=== PATIENT | female | born 1980 | race Caucasian/White ===

== ENCOUNTER 2022-03-15 11:01 | Emergency (ER) | payer MEDICARE, MEDICAID, SELFPAY ==
[2022-03-15 11:09] VITALS: BP 145/90; PULSE 86; RESP 18; TEMP 36.6; O2SAT 98; BMI 25.7
--- NOTE | 2022-03-15 11:29 | ED.GENADULT ---
HPI - General Adult General Chief complaint: Overdose Stated complaint: overdose Time Seen by Provider: 03/15/22 11:13 Source: patient Mode of arrival: ambulatory Limitations: no limitations History of Present Illness HPI narrative: 41-year-old female history of opiate abuse presents to ED for accidental overdose. Patient states she accidentally overdosed of 1 bag of heroin. Patient states she has been clean but was suffering from sciatica pain so she took some heroin. Patient has no intentions to hurt herself. Patient does not want detox. Patient received Narcan in the field. Related Data Allergies Allergy/AdvReac Type Severity Reaction Status Date / Time ibuprofen [IBUPROFEN] Allergy Unknown veins Verified 03/15/22 11:15 twitching/hurting LOBSTER Allergy Severe ANAPHYLAXIS Uncoded 07/18/20 14:38 motrin Allergy Unknown Unknown Uncoded 03/15/22 11:15 Review of Systems Review of Systems: Accidental overdose. Yes all other systems are reviewed and are negative [facility] Past Medical History Medical History (Updated 03/15/22 @ 16:46 by CYNTHIA Valle) Depression Sciatic leg pain Substance abuse Social History Social History Advance Directives: No Advance Directives Information Provided: No Physical Exam ED Vital Signs: Vital Signs - 24 hr 03/15/22 11:09 Temperature 97.8 F Pulse Rate 86 Respiratory Rate 18 Blood Pressure 145/90 H Pulse Oximetry 98 BMI result Body Mass Index 25.7 Const General: cooperative, healthy appearing, comfortable, no acute distress, well developed, alert, awake and Physically active Orientation/consciousness: oriented to time and patient oriented x3 HENMT Head: Yes normal to inspection, Yes No palpable skull fracture present, Yes normocephalic, Yes atraumatic and No abrasion Eyes General: appearance normal, both eyes and all related structures Neck Neck: Yes normal visual inspection, Yes full ROM, Yes no lymphadenopathy, Yes no meningeal signs, Yes trachea midline, Yes supple, No anterior neck swelling and No tender Chest Chest palpation & inspection: normal inspection of the chest and normal palpation of entire chest wall Resp Effort & Inspection: normal respiratory effort and able to speak in complete sentences Cardio Jugular venous distension: no JVD Heart sounds: S1 normal heart sound present and S2 normal heart sound present GI Inspection: Yes normal to inspection and No abdominal wall ecchymosis Palpation (GI): Soft to palpation, not firm, nontender, no guarding and not rigid General: No CVA tenderness and Yes no CVA tenderness Back/Spine/Pelvis Back: no CVA tenderness, No CVA tenderness and No back tenderness Skin General skin exam: no rashes or lesions noted and elasticity normal Neuro General: oriented to time, patient oriented x3, no meningeal signs and CN's II-XI intact bilaterally Cranial nerves: Yes CN's II-XII intact bilaterally Extrem General: Yes normal to inspection and Yes full ROM Psych Appearance: grossly normal, well kempt and not disheveled Course Course Course Narrative: Patient alert oriented x3. Care team consult DESI placed Reevaluation(s) Reevaluation #1: Patient alert oriented x3. Patient walked out during ED visit. Patient had normal vital signs. Patient was informed we would watch her her for at least an hour to make sure she does not go in respiratory distress. patient eloped from the ER without staff knowiing.. Time: 17:15 Medical Decision Making MDM Narrative Medical decision making narrative: Substance abuse Discharge Plan Discharge Clinical Impression: Drug overdose Patient Disposition: Elopement Discharge Date/Time: 03/15/22 12:09
== END 2022-03-15 12:09 | disposition left against medical advice (07) ==
LOC: HO.ED 11:20
PROVIDERS: Emergency Provider Emergency Medicine; PCP Internal Medicine
DX: T40.1X1A Poisoning by heroin, accidental (unintentional), initial encounter (principal); F11.10 Opioid abuse, uncomplicated; Y92.9 Unspecified place or not applicable
CPT/HCPCS: 99282

== ENCOUNTER 2022-05-15 07:44 | Emergency (ER) | payer MEDICARE, MEDICAID, SELFPAY ==
[2022-05-15 07:56] VITALS: BP 135/74; PULSE 85; RESP 18; TEMP 36.3; O2SAT 95; BMI 27.4
[2022-05-15] MEDS: Ondansetron ODT 4 MG TAB.RAPDIS TRANSLINGU (08:01)
--- NOTE | 2022-05-15 08:09 | ED_ITS ---
HPI - Overdose General Chief Complaint: Overdose Stated Complaint: OD,12MG NARCAN GIVEN W/ GOOD RESULT PER EMS Time Seen by Provider: 05/15/22 07:58 Source: patient and EMS Mode of arrival: EMS Limitations: no limitations History of Present Illness HPI Narrative: 41-year-old female with a history of Related Data Allergies Allergy/AdvReac Type Severity Reaction Status Date / Time ibuprofen [IBUPROFEN] Allergy Unknown veins Verified 03/15/22 11:15 twitching/hurting LOBSTER Allergy Severe ANAPHYLAXIS Uncoded 07/18/20 14:38 motrin Allergy Unknown Unknown Uncoded 03/15/22 11:15 [facility] Past Medical History Medical History (Updated 03/16/22 @ 00:01 by Background Daemon) Depression Sciatic leg pain Substance abuse Physical Exam Vital Signs: Vital Signs: Last Vital Signs Temp 97.4 F 05/15/22 07:56 Pulse 85 05/15/22 07:56 Resp 18 05/15/22 07:56 BP 135/74 05/15/22 07:56 Pulse Ox 95 05/15/22 07:56 O2 Del Method 05/15/22 07:56 BMI result Body Mass Index 27.4
--- NOTE | 2022-05-15 08:26 | ED.OVERDOSE ---
HPI - Overdose General Chief Complaint: Overdose Stated Complaint: OD,12MG NARCAN GIVEN W/ GOOD RESULT PER EMS Time Seen by Provider: 05/15/22 07:58 Source: patient and EMS Mode of arrival: EMS Limitations: no limitations History of Present Illness HPI Narrative: 41-year-old female brought in by EMS for overdose. Patient was [place] by [place]stander [place] the park unresponsive. Patient admitted that she used half a pack of heroin IV this morning, patient do not use IV drugs on a regular basis, admitted to use cocaine almost daily. Patient was given 12 mg of Narcan at the scene with instant regain of consciousness, patient was having nausea and vomiting that improved after was given Zofran. Related Data Allergies Allergy/AdvReac Type Severity Reaction Status Date / Time ibuprofen [IBUPROFEN] Allergy Unknown veins Verified 03/15/22 11:15 twitching/hurting LOBSTER Allergy Severe ANAPHYLAXIS Uncoded 07/18/20 14:38 motrin Allergy Unknown Unknown Uncoded 03/15/22 11:15 Review of Systems Review of Systems: All other systems are reviewed and are negative Constitutional: Reports as per HPI and Reports no additional constitutional complaints Eyes: Reports as per HPI and Reports no additional eye complaints Reports system reviewed and no additional complaints, except as documented Cardiovascular: Reports as per HPI and Reports no additional cardiovascular complaints Respiratory: Reports as per HPI and Reports no additional respiratory complaints Gastrointestinal: Reports as per HPI and Reports no additional gastrointestinal complaints Genitourinary: Reports no additional female genitourinary complaints Musculoskeletal: Reports no additional musculoskeletal complaints Skin/Breast: Reports system reviewed and no additional complaints, except as docu Psychiatric: Reports no additional psychiatric complaints Endocrine: Reports no additional endocrine complaints Hematologic/Lymphatic: Reports no additional hematologic/lymphatic complaints Allergic/Immunologic: Reports no additional allergic/immunologic complaints Reports system reviewed and no additional complaints, except as documented and Reports Abnormal speech present [facility] Past Medical History Medical History Depression Sciatic leg pain Substance abuse Social History Social History Advance Directives: No Advance Directives Information Provided: No Physical Exam Vital Signs: Vital Signs: Last Vital Signs Temp 97.4 F 05/15/22 07:56 Pulse 85 05/15/22 07:56 Resp 18 05/15/22 07:56 BP 135/74 05/15/22 07:56 Pulse Ox 95 05/15/22 07:56 O2 Del Method 05/15/22 07:56 BMI result Body Mass Index 27.4 Vital signs have been reviewed as appeared to be correct. Blood pressure normal. Heart rate normal. Respiration rate normal. Temperature normal. Oxygen saturation normal. Appearance: Alert. Oriented X3. No acute distress. Head: Normal external exam. Normocephalic. Atraumatic. No Landers signs noted. No raccoon eyes noted Eyes: PERRLA. EOMI. Conjunctiva and sclera normal. Eyelids normal. ENT: TM's Normal. Pharynx normal. Uvula midline. Moist mucous membranes. No trismus noted. No drooling noted. No muffled voice noted. Neck: Normal inspection. Neck supple. FROM. No adenopathy. Thyroid Normal. No meningeal signs. No neck mass noted. CVS: Normal heart rate and rhythm. Heart sound normal. No murmurs noted. Pulses normal throughout. Respiratory: No respiratory distress. Painless inspiration. Breath sounds normal. No wheezes/rales/rhonchi noted. Chest nontender. No accessory muscle usage noted or decreased air movement noted. Abdomen: Soft and nontender. Bowel sounds normal in all 4 quadrants. No distention noted. No organomegaly noted. No visible injury noted. Back: No CVA tenderness. Full range of motion noted. Skin: Skin warm and dry. Normal skin color. Normal skin turgor. No rashes/lesions/lacerations noted. Extremities: No lower extremity edema. Extremities exhibit normal range of motion. Extremities nontender. Neuro: Oriented X 3. Cranial nerve exam: II-XII are grossly intact No motor deficit. No sensory deficit. Reflexes normal. Course Course Course Narrative: 41-year-old female brought in by EMS after overdosed on heroin. Patient required 12 mg of Narcan, patient now is awake and alert, patient was observed in the emergency department has no SI or HI with stable vital signs, will discharge the patient with Narcan to go home, patient will be evaluated by care team before discharge home. Discharge Plan Discharge Clinical Impression: Drug overdose Patient Disposition: Home, Self-Care Instructions: Adult Overdose (ED) Referrals: Amy Moulton MD [Primary Care Provider] -
--- NOTE | 2022-05-15 15:54 | HO.SUDE ---
Met with pt in ED [facility] at 0900 to discuss substance use. Pt in bed, resting, opens eyes and responds to voice. Pt reports using heroin, 1/2 bag IV, which resulted in overdose. Pt reports last use was in March which also resulted in overdose. Pt also reports using crack cocaine, INH, 1 gram every other day. Denies other substances. Pt states I just do it when I can't take the pain anymore. Pt reports chronic sciatica as well as gout. Pt states I was with my friend in her car and as soon as I did it I asked her if she had Narcan and she said no. I knew I was going to OD. Pt reports hx OUD, last time in treatment was 3-3 1/2 years ago. Pt had gone to [facility] for ATS and since then has not used opiates consistently. Pt reports 7 ATS admissions. Pt also reports reduction in crack cocaine use, had been using daily. Pt has been on Suboxone (approx 5 years ago) and methadone (approx 3 years ago) and is interested in restarting Suboxone. Pt recently moved from [place] to [place] to live with mother and 17 year old autistic son. Has 2 other children, 27 and 24. Reports has been in [place] x 1 month fixing up the house. Pt does not plan on moving due to son being here in [place] and mother having guardianship. Pt states My said if he ever found out I was using again he would leave me. My mom is gonna be upset. Pt educated regarding community supports and resources, would like to be referred to [facility]. Pt declines ATS at this time. Provided with many written resources as well as t/w contact information if needed. Denies questions or concerns at this time. Discussed with provider as well as Evon Plasencia APRN. Plan for to meet with pt to discuss Suboxone initiation and t/w will submit referral.
== END 2022-05-15 11:43 | disposition home or self-care (01) ==
PROVIDERS: Emergency Provider Emergency Medicine; PCP Internal Medicine
DX: T40.1X1A Poisoning by heroin, accidental (unintentional), initial encounter (principal); R40.4 Transient alteration of awareness; Y92.830 Public park as the place of occurrence of the external cause; R11.2 Nausea with vomiting, unspecified
CPT/HCPCS: 99282; 99283

== ENCOUNTER 2022-05-24 12:39 | Emergency (ER) | payer MEDICARE, MEDICAID, SELFPAY ==
[2022-05-24 12:49] VITALS: BP 167/99; PULSE 95; RESP 18; TEMP 36.7; O2SAT 96; BMI 27.4
--- NOTE | 2022-05-24 12:49 | ED.OVERDOSE ---
HPI - Overdose General Chief Complaint: Overdose Stated Complaint: OD Time Seen by Provider: 05/24/22 12:47 History of Present Illness HPI Narrative: This is a 41 years old female with history of substance abuse presented to the emergency department after opioid and cocaine overdose, she was given 2 mg Narcan by the EMS. Patient denies SI and HI she does no want to go to detox MD complaint: accidental overdose Onset (ago): hour(s) (1) Context: Intentional Overdose: other (wanted get high) Context: Accidental Overdose: wanted to get high Related Data Previous Rx's Medication Instructions Recorded buprenorphine 2 mg-naloxone 0.5 mg 1 film buccal BID #10 ea 05/15/22 sublingual film (Suboxone) Allergies Allergy/AdvReac Type Severity Reaction Status Date / Time ibuprofen [IBUPROFEN] Allergy Unknown veins Verified 03/15/22 11:15 twitching/hurting LOBSTER Allergy Severe ANAPHYLAXIS Uncoded 07/18/20 14:38 motrin Allergy Unknown Unknown Uncoded 03/15/22 11:15 Review of Systems Review of Systems: Yes all other systems are reviewed and are negative Eyes: Eyes: Reports no additional eye complaints Cardiovascular: Cardiovascular: Reports no additional cardiovascular complaints Neurologic: Reports system reviewed and no additional complaints, except as documented PMFSH Past Medical History Medical History Depression Sciatic leg pain Substance abuse Social History Social History Advance Directives: Yes Advance Directives Information Provided: Yes Advance Directives on File: No Physical Exam Vital Signs: Vital Signs: Last Vital Signs Temp 98.1 F 05/24/22 12:49 Pulse 95 05/24/22 12:49 Resp 18 05/24/22 12:49 BP 167/99 H 05/24/22 12:49 Pulse Ox 96 05/24/22 12:49 O2 Del Method 05/24/22 12:49 BMI result Body Mass Index 27.4 Const: General: cooperative Orientation/consciousness: patient oriented x3 HEENT: Head: Yes normal to inspection Ears: hearing grossly normal bilaterally General nose exam: Normal external nose present Face and sinus: Yes normal facial exam Mouth: Normal oral and palatal mucosa present Throat: Yes posterior oropharynx normal Neck: Neck: Yes normal visual inspection Chest: Chest palpation & inspection: normal inspection of the chest Resp: Effort & Inspection: normal respiratory effort and able to speak in complete sentences Auscultation: clear to auscultation bilaterally Cardio: Jugular venous distension: no JVD Rate: regular rate Rhythm: regular rhythm GI: Inspection: Yes normal to inspection Palpation (GI): Soft to palpation, not firm, nontender and no guarding Skin: General skin exam: no rashes or lesions noted Rashes: no rashes Neuro: General: patient oriented x3 and gait normal Course Reevaluation(s) Reevaluation #1: Pt was seen by Care team as well refuses detox. Pt request discharge she has decision making capacity will d/c home Discharge Plan Discharge Clinical Impression: Drug overdose Patient Disposition: Home, Self-Care Instructions: Adult Overdose (ED) Additional Instructions: You were seen today in the emergency department after an overdose of opioids cocaine, you are refusing detox you are requesting discharge home. You are welcome to come back if you decide that you want help with the cocaine and opiate use disorder Prescriptions: No Action buprenorphine-naloxone [Suboxone] 2-0.5 mg film 1 film buccal BID Qty: 10 0RF Referrals: Yarelis Moulton PA [Primary Care Provider] - 1 day Interventions: ED Discharge Assessment Last Done: 05/24/22 14:11 Discharge Date/Time: 05/24/22 14:30
--- NOTE | 2022-05-24 13:19 | HO.SUDE ---
Pt declines full SUDE. Pt behavior odd, topless in bathroom dancing, covered in dirt, leaves in her hair. Sink running, attempting to wash up however paces and dances around bathroom. States I'm just gonna do the Suboxone and go to my meetings. They put fucking heroin in the coke. Pt declines to discuss substance use at this time. Pt reports losing a shoe in the ambulance, t/w provided pt with new shoes and socks. Pt requesting to be discharged. Provided with t/w contact information if needed. Discussed with ED provider.
== END 2022-05-24 14:30 | disposition home or self-care (01) ==
LOC: HO.ED 14:12
PROVIDERS: Emergency Provider Emergency Medicine; PCP Physician Assistant Medical
DX: T40.1X1A Poisoning by heroin, accidental (unintentional), initial encounter (principal); Y92.9 Unspecified place or not applicable; Z79.899 Other long term (current) drug therapy; Z71.51 Drug abuse counseling and surveillance of drug abuser
CPT/HCPCS: 99282

== ENCOUNTER 2022-10-01 11:58 | Emergency (ER) | payer MEDICARE, MEDICAID, SELFPAY ==
[2022-10-01 12:03] VITALS: RESP 20; BMI 23.0
--- NOTE | 2022-10-01 12:12 | ED.GENADULT ---
HPI - General Adult General Chief complaint: General Medical Stated complaint: crack cocaine use per EMS Time Seen by Provider: 10/01/22 12:02 Source: EMS Mode of arrival: EMS Limitations: altered mental status History of Present Illness HPI narrative: 42 yo female with a past medical history of substance abuse presents with altered mental status secondary to crack cocaine use. Patient was found outside to be altered, and EMS was called. HPI, review of systems, and physical exam may be limited secondary to the patient's altered mental status Onset (ago): unknown Related Data Previous Rx's Medication Instructions Recorded buprenorphine 2 mg-naloxone 0.5 mg 1 film buccal BID #10 ea 05/15/22 sublingual film (Suboxone) Allergies Allergy/AdvReac Type Severity Reaction Status Date / Time ibuprofen [IBUPROFEN] Allergy Unknown veins Verified 03/15/22 11:15 twitching/hurting LOBSTER Allergy Severe ANAPHYLAXIS Uncoded 07/18/20 14:38 motrin Allergy Unknown Unknown Uncoded 03/15/22 11:15 Review of Systems Review of Systems: Yes Unobtainable due to mental condition and Unobtainable due to mental status Neurologic: Reports confusion Psychiatric: Psychiatric: Reports confusion [facility] Past Medical History Source: unable to obtain Medical History Depression Sciatic leg pain Substance abuse Social History Social History Advance Directives: No Physical Exam ED Vital Signs: Vital Signs - 24 hr 10/01/22 12:03 10/01/22 12:30 Pulse Rate 107 H Respiratory Rate 20 Blood Pressure 138/85 Pulse Oximetry 95 BMI result Body Mass Index 23.0 Vital signs is limited and unobtainable due to the patient's movements Const General: confusion, intoxicated appearing and poor hygiene Nutritional Appearance: underweight Orientation/consciousness: confusion Limitations: altered mental status HENMT Head: Yes normocephalic and Yes atraumatic Ears: external ears normal General nose exam: Normal external nose present Face and sinus: Yes normal facial exam Eyes Conjunctivae: conjunctivae normal Sclerae: sclerae normal Pupils: Equal, round and reactive pupils present EOM: EOMs intact bilaterally Neck Neck: Yes normal visual inspection and Yes full ROM Resp Effort & Inspection: normal respiratory effort Skin General skin exam: no rashes or lesions noted Neuro General: confusion and Unable to assess gait Cranial nerves: Yes Equal, round and reactive pupils present Gait exam (Neuro): Unable to assess gait Motor exam (neuro): Motor abnormalites present Psych Appearance: disheveled Speech and movement: Psychomotor agitation in speech present and Restless speech present Course Reevaluation(s) Reevaluation #1: Upon re-evaluation, the patient is somewhat more cooperative, although continues to be difficult to examine secondary to constant movement. Most likely this is a reaction to the substances the patient abuses. As the time has passed, she has become more lucent and cooperative. She will be given a few more hours and we will re-evaluate her potential discharge plan at that time. Time: 15:53 Medications Administered Discontinued Medications Generic Name Dose Route Start Last Admin Trade Name Frantz PRN Reason Stop Dose Admin Midazolam HCl 2 mg 10/01/22 12:30 10/01/22 12:40 Midazolam Hcl/Pf 2 Mg/2 Ml Vial IM 10/01/22 12:31 2 mg ONCE ONE Administration Midazolam HCl 2 mg 10/01/22 15:14 10/01/22 15:39 Midazolam Hcl/Pf 2 Mg/2 Ml Vial IM 10/01/22 15:15 2 mg ONCE ONE Administration Olanzapine 5 mg 10/01/22 15:14 10/01/22 15:38 Olanzapine 10 Mg Vial IM 10/01/22 15:15 5 mg ONCE ONE Administration Discharge Plan Discharge Clinical Impression: Polysubstance abuse Patient Disposition: Still a Patient Instructions: Polysubstance Abuse (ED) Prescriptions: No Action buprenorphine-naloxone [Suboxone] 2-0.5 mg film 1 film buccal BID Qty: 10 0RF
[2022-10-01 12:30] VITALS: BP 138/85; PULSE 107; O2SAT 95
[2022-10-01] MEDS: Midazolam HCl/PF 2 MG/2 ML VIAL IM ×2 (12:40→15:39)
[2022-10-01] MEDS: OLANZapine 10 MG VIAL 5 MG IM (15:38)
[2022-10-01 19:27] VITALS: BP 123/87; PULSE 85; RESP 16; TEMP 37.1; O2SAT 96
== END 2022-10-01 19:39 | disposition home or self-care (01) ==
PROVIDERS: Emergency Provider Emergency Medicine
DX: F19.10 Other psychoactive substance abuse, uncomplicated (principal); F14.10 Cocaine abuse, uncomplicated; F11.20 Opioid dependence, uncomplicated
CPT/HCPCS: 96372; 99283; 99284; J2250

== ENCOUNTER 2023-06-25 12:03 | Emergency (ER) | payer MEDICARE, MEDICAID, SELFPAY ==
--- NOTE | ~2023-06-25 | XR_ITS ---
EXAMINATION: XR FOOT, RIGHT CLINICAL INFORMATION: Evaluate for osteochondral first and second MTP joint COMPARISON: None available. TECHNIQUE: AP, lateral, and oblique views of the right foot. FINDINGS: Minimal hallux valgus and some possible bunion formation distal first metatarsal. No bony erosion or osteopenia. Otherwise the articulations in the foot are felt to be within normal limits. Moderate spurring at the insertion of the plantar aponeuroses on the calcaneus. Some small stippled bony densities posterior to the tibiotalar articulation. Some minimal bony density and density dorsally along the first MTP joint may be degenerative in nature. XR/XR foot RT min 3V IMPRESSION: Some evidence of degenerative changes are seen here. No acute bony finding
[2023-06-25 12:12] VITALS: BP 132/90; PULSE 96; O2SAT 97
[2023-06-25 12:15] VITALS: BP 131/78; PULSE 88; RESP 20; TEMP 36.9; O2SAT 98; BMI 18.5
--- NOTE | 2023-06-25 12:15 | ED.GENADULT ---
HPI - General Adult General Chief complaint: Skin/Abscess/Foreign Body Stated complaint: ABSESS ON R FOOT/POSS INFECTION PER EMS Related Data Previous Rx's Medication Instructions Recorded buprenorphine 2 mg-naloxone 0.5 mg 1 film buccal BID #10 ea 05/15/22 sublingual film (Suboxone) naloxone 4 mg/actuation nasal 4 mg intranasal Q2M PRN opioid 10/01/22 spray (Narcan) overdose #2 ea Allergies Allergy/AdvReac Type Severity Reaction Status Date / Time ibuprofen [IBUPROFEN] Allergy Unknown veins Verified 06/25/23 12:26 twitching/hurting LOBSTER Allergy Severe ANAPHYLAXIS Uncoded 06/25/23 12:26 motrin Allergy Unknown Unknown Uncoded 06/25/23 12:26 PMFSH Past Medical History Medical History Depression Sciatic leg pain Substance abuse Social History Social History Advance Directives: No Advance Directives Information Provided: No Physical Exam ED Vital Signs: Vital Signs - 24 hr 06/25/23 12:15 Temperature 98.5 F Pulse Rate 88 Respiratory Rate 20 Blood Pressure 131/78 Pulse Oximetry 98 Oxygen Delivery Method Room Air BMI result Body Mass Index 18.5 Course Course Course Narrative: This is a rapid medical exam: Additional HPI, ROS, PE not included below will be deferred to primary provider. Patient is a 42-year-old female with history of substance use presenting to the emergency department with complaint of right foot pain for the past 2 weeks. States she accidentally stepped on 3 heroin needles and developed an abscess which she reports drained spontaneously. Reports fever to 103 this am, took ibuprofen at 9:15am. States foot is still draining. Patient has open wound to dorsal aspect of distal right foot in area of 1st/2nd MTP joints. Patient states puncture wound was to the plantar surface of her foot and went through to the top. No puncture wound noted to plantar surface of foot. No surrounding erythema or calor. Do not suspect sepsis at this time. Plan: labs including blood cultures and lactic, xray Discharge Plan Discharge Clinical Impression: Foot pain, right Patient Disposition: Elopement Prescriptions: No Action buprenorphine-naloxone [Suboxone] 2-0.5 mg film 1 film buccal BID Qty: 10 0RF naloxone [Narcan] 4 mg/actuation spray,non-aerosol 4 mg intranasal Q2M PRN (Reason: opioid overdose) Qty: 2 0RF Rx Instructions: spray 1 dose into ONE nostril; alternate nostrils w each dose until help arrives
== END 2023-06-25 17:15 | disposition left against medical advice (07) ==
PROVIDERS: Emergency Provider Emergency Medicine; PCP Internal Medicine
DX: M79.671 Pain in right foot (principal); Z79.899 Other long term (current) drug therapy
CPT/HCPCS: 73630; 99281; 99283

== ENCOUNTER 2025-07-04 07:50 | Outpatient (REF) | payer MEDICARE, MEDICAID, SELFPAY | END 2025-07-04 07:51 | disposition home or self-care (01) | LOC: HO.LNP 07:50 | PROVIDERS: PCP Internal Medicine; Visit Provider Obstetrics & Gynecology | DX: N73.9 Female pelvic inflammatory disease, unspecified (principal); B97.7 Papillomavirus as the cause of diseases classified elsewhere; M25.562 Pain in left knee; Z32.02 Encounter for pregnancy test, result negative; Z98.51 Tubal ligation status; Z91.81 History of falling | CPT/HCPCS: 57454; 81025; 88305; 99202 ==

== ENCOUNTER 2025-07-04 07:50 | Outpatient (AMB) | payer MEDICARE, MEDICAID, SELFPAY ==
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
--- OUTSIDE RECORDS SUMMARY | 2025-07-04 07:57 | XMS_ITS | Patient Health Record ---
Author Organization [facility] Address [address] [place] [address] Care Team Providers Care Deicer Finisher Name Role Phone NO, PCP Primary Care Provider Bozena Leach Unavailable [phone] Reason For Referral No Information Social History Sex Assigned At : Social History Observation Description Sex Assigned At Female Encounters Encounter Location Date Provider Diagnosis [facility] [address] [place] [phone] 09/14/2024 Bozena Leach [facility] [address] [place] [phone] 03/15/2025 Bozena Leach Plan Of Treatment No Information Insurance Providers Payer Name Payer Address Payer Phone Subscriber Number Group Number Insured Name Patient Relationship to Insured Coverage Start Date Coverage End Date [facility] [address] [place] [phone] [id number] Shaniqua Morris Self - patient is the insured 4
--- NOTE | 2025-07-04 08:04 | A.OFFVIS_ITS ---
Vital Signs 07/04/25 08:06 Height 5 ft 2 in Weight 180 lb BMI 32.9 BP 108/70 Intake Visit Reasons: Hx of HPV positive French Binding Folder Required: No Information Interpreted: non-clinical & clinical District Court Justice: District Court Justice Present (Misa Lee NATALIE) Accompanied by: Self / Same As Patient Allergies ibuprofen (IBUPROFEN) Allergy (Unknown, Verified 07/04/25 08:07) veins twitching/hurting LOBSTER Allergy (Severe, Uncoded 07/04/25 08:07) ANAPHYLAXIS motrin Allergy (Unknown, Uncoded 07/04/25 08:07) Unknown Is last menstrual period known: Yes Last menstrual period: 07/03/25 HPI Comments Details: Presenting referred from PCP regarding abnormal cervical screening, HPV positive History of abnormal Pap smears over the last few years in different healthcare systems no records available [facility] Medical History Depression Sciatic leg pain Substance abuse Surgical History Hx of dilation and curettage Hx of tubal ligation Family History Mother Depression Ovarian cancer HTN (hypertension) Mental problems Father HTN (hypertension) Maternal Grandmother Diabetes Social History Household Members Other:: [facility]pc Alcohol intake: former Patient Tobacco Use Status: Current everyday Tobacco user Cigarette Packs Per Day: 1 Years Smoked: 10 Use of substances other than those prescribed or required for medical reasons: No Substance Use Type: Crack/Cocaine, Heroin and Marijuana Current occupational status: disabled Sexually active: No Sexual orientation: Straight/Heterosexual Gender identity: Female Female Reproductive History Menstrual Age of Menarche: 9 Duration of menses: 6-7 days Date of last menstrual period: 07/03/25 control method: permanent sterilization and condoms Total pregnancies: 5 Full term: 3 Number of Living Children: 3 Ab induced: 2 Review of Systems Const All systems reviewed & are unremarkable except as noted in HPI and below Physical Exam Vital Signs: Last Vital Signs BP 108/70 07/04/25 08:06 BMI result Body Mass Index 32.9 General: Yes no CVA tenderness External Female Exam: normal external appearance and normal appearance of the urethra Speculum Exam - Vagina: normal appearance of the vagina, normal palpation, no lesions and no masses Speculum Exam - Cervix: normal appearance of the cervix, normal palpation, no lesions, no masses and nontender Bimanual exam- vagina & uterus: normal bimanual exam, normal palpation, uterine size normal, normal palpation, uterine shape normal, No Cervical tenderness present and non-tender Bimanual Exam- Adnexa, other: normal adnexae Back/Spine/Pelvis Back: no CVA tenderness Office Procedures Colposcopy Colposcopy: Pre-Procedure Counseling: Before beginning the procedure, I conducted comprehensive counseling with the patient. We thoroughly discussed the procedure itself, including its details, alternatives, and all associated risks. This included but not limited to the following complications such as bleeding, infection, and injury to the vagina, bladder, and vessels, as well as the potential need for transfusion with all its associated risks. Subsequently, the patient sign the consent. Pap smear result: HPV positive, history of abnormal Pap smear Urine test in office = Negative Procedure: During the procedure, the following steps were performed: A speculum was inserted, and acetic acid was applied. Colposcopy was conducted, allowing visualization of the transformation zone. Acetowhite lesions were identified at the 5+6+7+12+3 o'clock position. Cervical biopsies were obtained from the 5+6+7+12+3 o'clock position, followed by an endocervical curettage (ECC). Vaginoscopy of the upper vagina revealed no evidence of aceto-white lesions. Hemostasis was achieved using Monsel solution, and the patient tolerated the procedure well. Post-Procedure Instructions: The patient was advised to promptly contact the office or the after hours [facility] service or go to the emergency room if experiencing a temperature exceeding 100.4?F, abdominal pain, nausea/vomiting, or bleeding. Additionally, the patient was instructed to abstain from vaginal intercourse and bathtub use. The patient confirmed understanding of these instructions. Discharge Instructions: The patient was instructed to schedule a follow-up appointment in 2 weeks for further evaluation and management. Please note that this note was generated using a voice recognition program, and errors may have occurred during [employer]. [id number] of cervix including upper vagina with biopsy and ECC Procedure code (CPT) selection complete Results AMB Test Urine AMB Test Urine Negative Last Edit by Misa Lee CMA on 08:50 Assessment & Plan Assessment & Plan (1) HPV (human papilloma virus) infection: Code(s): B97.7 - Papillomavirus as the cause of diseases classified elsewhere Category: Medical Plan: Discussed with the patient the result of positive HPV, although no Pap smear results available with a history of abnormal Pap smear discussed with the patient its significance, risk of progression, persistence, and regression. the false positive/negative rate of a cervical screening test in detecting cervical cancer and the indication for a diagnostic test -colposcopy, biopsy, endocervical curettage. The patient verbalized understanding and agreed with the plan, all questions answered. Colposcopy, biopsy /ECC done, see procedure note Orders: Orders AMB HCG Urine Test Today Z32.02 - Encounter for test, result negative AMB Colposcopy Today B97.7 - Papillomavirus as the cause of diseases classified elsewhere Coding Level of Care Code New Pt Level 3 (06923) Procedure Only Diagnoses HPV (human papilloma virus) infection B97.7 CPT Codes Colposcopy - CPT: 14700-Mhuplpenz of cervix including upper vagina with biopsy and ECC ([id number])
[2025-07-04 08:06] VITALS: BP 108/70; BMI 32.9
== END 2025-07-04 09:26 | disposition home or self-care (01) ==
LOC: HO.HWS 07:51
PROVIDERS: PCP Internal Medicine; Visit Provider Obstetrics & Gynecology
DX: R87.810 Cervical high risk human papillomavirus (HPV) DNA test positive (principal); Z32.02 Encounter for pregnancy test, result negative
CPT/HCPCS: 57454; 99203

== ENCOUNTER 2025-07-26 11:37 | Outpatient (AMB) | payer MEDICARE, MEDICAID, SELFPAY ==
--- NOTE | 2025-07-26 11:37 | A.OFFVIS_ITS ---
Intake Visit Reasons: TV colpo Results Allergies ibuprofen (IBUPROFEN) Allergy (Unknown, Verified 07/04/25 08:07) veins twitching/hurting LOBSTER Allergy (Severe, Uncoded 07/04/25 08:07) ANAPHYLAXIS motrin Allergy (Unknown, Uncoded 07/04/25 08:07) Unknown HPI Comments Details: Presenting post colpo for follow-up. The patient is doing well with no complaints. The pathology showed the following: A. Endocervix, curettage: Benign endocervical glandular mucosa with squamous metaplasia and reactive changes; negative for dysplasia. B. Cervix, 3:00, biopsy: Low-grade squamous intraepithelial lesion (mild dysplasia, JEANIE 1); endocervical glandular mucosa present. C. Cervix, 5:00, biopsy: Squamous and endocervical glandular mucosa with marked inflammation and reactive changes; negative for dysplasia. D. Cervix, 6:00, biopsy: Squamous and endocervical glandular mucosa with inflammation and reactive changes; negative for dysplasia. E. Cervix, 7:00, biopsy: Squamous and endocervical glandular mucosa with marked inflammation and reactive changes; negative for dysplasia F. Cervix, 12:00, biopsy: Squamous and endocervical glandular mucosa; negative for dysplasia [facility] History Depression Sciatic leg pain Substance abuse Surgical History Hx of dilation and curettage Hx of tubal ligation Family History Mother Depression Ovarian cancer HTN (hypertension) Mental problems Father HTN (hypertension) Maternal Grandmother Diabetes Social History Household Members Other:: [facility] Alcohol intake: former Patient Tobacco Use Status: Current everyday Tobacco user Cigarette Packs Per Day: 1 Years Smoked: 10 Substance Use Type: Crack/Cocaine, Heroin and Marijuana Current occupational status: disabled Sexual orientation: Straight/Heterosexual Gender identity: Female Female Reproductive History Menstrual Age of Menarche: 9 Review of Systems Const All systems reviewed & are unremarkable except as noted in HPI and below Reports as per HPI and Reports no additional complaints GI Reports no additional complaints Reports no additional complaints Telehealth Telehealth Telehealth Platform: [facility] Location of provider rendering services: practice address Location of patient: address on file Patient Identification confirmed using: Name, : Yes Telehealth method: video Patient verbally consented to treatment: Yes Patient verbally consented to billing insurance company: Yes Patient informed of any privacy concerns related to visit: Yes Minutes spent on Phone/Video with Pt.: 3 Assessment & Plan Assessment & Plan (1) Dysplasia of cervix, low grade (JEANIE 1): Code(s): N87.0 - Mild cervical dysplasia Category: Medical Plan: Discussed with the patient the pathology results of the colposcopy biopsies & endocervical curettage ( mild dysplasia-JEANIE 1). Discussed with the patient the sensitivity specificity, positive and negative predictive value in detecting cervical cancer in addition discussed the regression, persistence and progression rates. Recommended co-testing in 12 months, if cytology and or HPV are abnormal will proceed was colposcopy biopsy and endocervical curettage, if lesions gets worse or stays persistent for 2 years will proceed with loop electric excision procedure. Instructions given to the patient to schedule a co test appointment in 1 year. All questions answered the patient verbalized understanding. I spent a total of 20 minutes reviewing the chart, talking to the patient via video and documenting in the medical record. Coding Level of Care Code Tele Est Pt Level 3 (08811) Diagnoses Dysplasia of cervix, low grade (JEANIE 1) N87.0
--- OUTSIDE RECORDS SUMMARY | 2025-07-26 16:27 | XMS_ITS | Patient Health Record ---
Author Organization [facility] Address [address] [place] [address] Care Team Providers Care Superintendent Pipelines Name Role Phone NO, PCP Primary Care Provider [phone] Bozena Leach Unavailable [phone] Reason For Referral No Information Social History Sex Assigned At : Social History Observation Description Sex Assigned At Female Encounters Encounter Location Date Provider Diagnosis [facility] [address] [place] [phone] 09/14/2024 Bozena Leach [facility] [address] [place] [phone] 03/15/2025 Bozena Leach Plan Of Treatment No Information Insurance Providers Payer Name Payer Address Payer Phone Subscriber Number Group Number Insured Name Patient Relationship to Insured Coverage Start Date Coverage End Date [facility] - Commercial [address] [place] [phone] [id number] Shaniqua Morris Self - patient is the insured 4
== END 2025-07-26 12:00 | disposition home or self-care (01) ==
LOC: HO.HWS 11:37
PROVIDERS: PCP Internal Medicine; Visit Provider Obstetrics & Gynecology
DX: N87.0 Mild cervical dysplasia (principal)
CPT/HCPCS: 99213